=== PATIENT | male | born 1955 | race Hispanic/Latino ===

== ENCOUNTER → 2023-11-29 | Outpatient (CLI) | payer OTHER ==
[2023-11-29] MEDS: REGADENOSON 0.4 MG/5 ML PF SYG IVP SCH (10:42)
== END | disposition home or self-care (01) ==
LOC: RAH 07:40
PROVIDERS: ATTEND Family Medicine
DX: R06.00 Dyspnea, unspecified (principal); R07.89 Other chest pain
CPT/HCPCS: 78452; 93017; J2785; A9500 ×2